=== PATIENT | male | born 1965 | race Two or more races ===

== ENCOUNTER 2018-04-25 18:31 | Emergency (ER) | payer BC, MEDICAID, OTHER ==
[~2018-04-25] VITALS: Ht 170.2 cm; Wt 66.0 kg
[2018-04-25 18:34] VITALS: BP 118/69
[2018-04-25] MEDS ORDERED: LIDOCAINE 2%, 20ML SQ ONE (19:00)
[2018-04-25] MEDS ORDERED: DIPH,PERTUSS(ACELL),TET VAC/PF 0.5 ML IM-VACC ONE ×2 (19:00→19:07)
[2018-04-25] MEDS ORDERED: LIDOCAINE-MPF 2%, 2ML ONE (19:06)
== END 2018-04-25 20:51 | disposition home or self-care (01) ==
LOC: ED 20:45
DX: T63.301A Toxic effect of unspecified spider venom, accidental (unintentional), initial encounter (principal); Y92.89 Other specified places as the place of occurrence of the external cause
CPT/HCPCS: 10060; 73564; 90471; 90715; 99284; J3490

== ENCOUNTER 2018-04-27 19:12 | Emergency (ER) | payer BC, OTHER ==
[~2018-04-27] VITALS: Ht 170.2 cm; Wt 66.6 kg
[2018-04-27 19:15] VITALS: BP 123/68
[2018-04-27] MEDS ORDERED: CEPH-368 PO (19:20)
[2018-04-27] MEDS ORDERED: NAPR-856 PO (19:20)
[2018-04-27] MEDS ORDERED: SULF-169 PO (19:20)
== END 2018-04-27 20:08 | disposition home or self-care (01) ==
LOC: ED 19:40
DX: L02.416 Cutaneous abscess of left lower limb (principal)
CPT/HCPCS: 99281